=== PATIENT | female | born 2000 | race Caucasian/White ===

== ENCOUNTER 2024-05-01 15:02 | Emergency (ER) | payer OTHER ==
[~2024-05-01] VITALS: Ht 167.6 cm; Wt 90.9 kg
[2024-05-01 15:09] VITALS: TEMP 98.3
[2024-05-01] MEDS ORDERED: Ibuprofen 400 MG TAB PO ONE (15:45)
[2024-05-01] MEDS ORDERED: ZOFRAN ODT4 MG PO (16:00)
[2024-05-01 16:12] VITALS: BP 125/84; PULSE 69
== END 2024-05-01 16:12 | disposition home or self-care (01) ==
LOC: COL.ER 15:02
DX: S06.0X0A Concussion without loss of consciousness, initial encounter (principal); W54.1XXA Struck by dog, initial encounter